=== PATIENT | male | born 1945 | race Caucasian/White ===

== ENCOUNTER 2017-03-05 08:33 | Emergency (ER) | payer MEDICARE, BC ==
[2017-03-05 09:01] LABS: Hematocrit 42.4 % (42.0-52.0); Hemoglobin 14.5 gm/dL (13.5-18.0); Mean Corpuscular Hemoglobin 30.8 pg (27-31); Mean Corpuscular Hgb Conc 34.2 g/dl (32-36); Neutrophil # 5.7 K/mm3 (1.3-6.0); Neutrophil % 63.6 % (42-75.0); Platelet Count 235 K/mm3 (150-450); Red Blood Count 4.71 M/mm3 (4.7-6.0); Red Cell Distribution Width 13.2 % (11.5-14.0)
[2017-03-05 09:15] LABS: Albumin * 3.5 gm/dl (3.4-5.0); Anion Gap 12.7 mmol/L (6.8-13.8); BUN/Creatinine Ratio 12.5 (9.0-21.6); Bilirubin, Total 0.4 mg/dL (0.0-1.1); Ca. Corrected For Albumin 9.1 mg/dL (8.4-10.2); Carbon Dioxide 26.4 mmol/L (24-32.6); Potassium 4.1 mmol/L (3.4-4.6); Total Protein 7.8 gm/dL (6.2-8.2)
[2017-03-05 09:16] LABS: Urine Bilirubin Negative (NEGATIVE); Urine Ketone Negative (NEGATIVE); Urine Nitrite Negative (NEGATIVE); Urine Protein Negative (NEGATIVE); Urine Urobilinogen Normal (NORMAL)
[2017-03-05 09:24] LABS: Urine Appearance Clear; Urine Bacteria None Seen; Urine Blood 5 /ul (NEGATIVE); Urine Color Yellow; Urine RBC 0-5 /hpf (0-5); Urine WBC None Seen /hpf (0-5)
--- NOTE | 2017-03-05 09:43 | ERNOTE ---
Abdominal HPI - General Chief Complaint: Abdominal Pain Time Seen by Provider: 03/05/17 08:44 Source: patient Exam Limitations: no limitations - Immun/Allergies/Home Medications Immunizatons: IMMUNIZATION HX Immunizations Up to Date No Allergies/Adverse Reactions: Allergies No Known Allergies Allergy (Verified 03/05/17 08:43) Home Medications: HOME MEDICATIONS NK [No Home Medication] 10/02/13 [Last Taken Unknown] - History of Present Illness Narrative: Patient presents with 3 days of diminishing lower abdominal pain. She states that he had some diarrhea on Sunday which turned mucousy diarrhea on Sunday and mild cramping yesterday that is almost gone today. Patient denies any history of any previous abdominal pain and rates his difficulty now is perhaps a 1 on scale of 1-10 Timing: other - nearly resolved Quality: mild Activities at Onset: none Prior Abdominal Problems: Present: none Review of Systems - Review of Systems Constitutional: Present: See HPI EYE: Present: no symptoms reported ENT: Present: no symptoms reported Respiratory: Present: no symptoms reported Cardiology: Present: no symptoms reported Gastrointestinal/Abdominal: Present: See HPI Genitourinary: Present: no symptoms reported Musculoskeletal: Present: no symptoms reported Skin: Present: no symptoms reported Neurological: Present: no symptoms reported Endocrine: Present: no symptoms reported Hematologic/Lymphatic: Present: no symptoms reported Psych: Present: no symptoms reported - Patient's Past Medical History Patient History - Medical: No pertinent hx Patient History - Cardiac/Respiratory: No pertinent hx Patient History - Cancer: No Hx of Cancer Patient History - Surgical Procedures: Total Knee Replacement - Social History Smoking Status: Never smoker Have you smoked in the past 12 months: No - Immunizations Immunizations Up to Date: No Physical Exam - Physical Exam General Appearance: Present: wd/wn, alert, no apparent distress Eye Exam: Normal inspection: bilateral, PERRL: bilateral Ears, Nose, Throat: Present: normal ENT inspection, H, normal pharynx Neck: Present: normal inspection, nontender Respiratory: Present: no respiratory distress, normal breath sounds, no accessory muscle use, chest nontender, lungs clear Cardiovascular/Chest: Present: regular rate, rhythm, no murmur, normal peripheral pulses Gastrointestinal/Abdominal: Present: normal bowel sounds, nondistended, soft, no organomegaly, tenderness - mild in the LLQ Rectal Exam: Present: deferred Back Exam: Present: normal inspection, normal range of motion Extremity Exam: Present: normal inspection, non-tender, no edema, normal range of motion Neurological Exam: Present: alert, oriented, normal mood/affect Skin Exam: Present: normal color, warm/dry Lymphatic Exam: Present: no adenopathy ED Progress - Results and Orders Patient's Lab Results:: I have reviewed the patient's lab results. - Vital Signs Patient's Vital Signs:: I have reviewed the patient's vital signs. Vital Signs: Vital Signs 03/05/17 08:38 Temperature 36.4 C L Pulse Rate 75 Respiratory 14 Rate Blood Pressure 137/71 O2 Sat by Pulse 93 Oximetry - X-Ray X-Ray #1 X-Ray: abdomen Interpretation: Reviewed by me - Progress/Reassessment Chief Complaint: Abdominal Pain Plan - Plan Plan: Patient will be dispensed a bottle of magnesium citrate and he will follow-up with Dr. Estes. Departure - Departure Clinical Impression: Constipation Qualifiers: Constipation type: unspecified constipation type Qualified Code(s): K59.00 - Constipation, unspecified Disposition: Home self-care Condition: Good Instructions: Constipation, Adult, [id number], Hyperglycemia, [id number] Referrals: Jose Estes DO [Primary Care Provider] -
[2017-03-05] MEDS ORDERED: MAGNESIUM CITRATE 300 ML BTL ONE (09:45)
[2017-03-05] MEDS: MAGNESIUM CITRATE 300 ML BTL PO ONE (09:49)
[2017-03-05 09:57] VITALS: BP 136/72
== END 2017-03-05 09:55 | disposition home or self-care (01) ==
LOC: ER 08:33
DX: K59.00 Constipation, unspecified (principal)